=== PATIENT | male | born 1960 | race Caucasian/White ===

== ENCOUNTER 2024-10-12 10:15 | Outpatient (AMB) | payer BC, SELFPAY ==
[2024-10-12 10:21] VITALS: BP 149/91; PULSE 78; RESP 16; O2SAT 98; BMI 24.4
--- NOTE | 2024-10-12 10:21 | MHC.OFFVIS ---
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 The pain started in the late and has been slowly progressive since then, with a pain score between 5 to 6 out of 10 in intensity. The pain in his lower back is described as an aching stabbing sensation, and the left shoulder also experiences a similar aching stabbing sensation. The patient reports pins and needles sensation in his bilateral calves and toes, and movements exacerbate the pain. He experiences morning stiffness and the pain is usually worst upon waking, reaching up to 6/10 in intensity. The patient has a history of old athletic injuries, which he attributes to his back and shoulder problems. He has undergone physical therapy since 2013 and chiropractic manipulation since 1998, both providing mild relief. He is currently undergoing massage therapy and has tried acupuncture in the past, which did not help. The patient has a history of left and right inguinal hernia repair and hemorrhoids. He has been taking NSAIDs, including ibuprofen and meloxicam, and has used prednisone dose packs twice in the past 10 years. The patient has a history of heart disease identified through a calcium scan and elevated lipoprotein(a), a genetic condition. He is cautious about medication use due to his heart condition and is on a regimen to manage his cholesterol levels. Pain Description - Onset: Pain started in the late and has been slowly progressive. - Quality: Described as aching and stabbing in the lower back and left shoulder. - Location: Back, left shoulder, neck, left groin, bilateral calves, and toes. - Exacerbating factors: Movements worsen the pain. - Relieving factors: Physical therapy, chiropractic manipulation, and massage therapy provide mild relief. - Interference: Pain is worst in the morning, affecting daily activities. Physical Exam - Musculoskeletal: Examination of the back and hip, noting tenderness and pain on range of motion. - SIJ provocation was negative. - Neurological: Assessment of sensation and reflexes in the lower extremities. Results - Imaging: MRI of the back relatively normal w/ mild DDD; left hip showing degenerative labral tear and SLAP tear in the shoulder. Pain Management - Affect: Pain impacts daily activities and is worst in the morning. - Analgesia: Currently taking NSAIDs, including ibuprofen and meloxicam. - Adverse Effects: No specific adverse effects discussed. - Activities of Daily Living: Pain affects daily activities, particularly in the morning. - Aberrant Drug Related Behaviors: No aberrant behaviors reported. [facility] Medical History (Updated 10/05/24 @ 10:29 by Tameka Drake LPN) Shoulder pain Low back pain Hyperlipidemia HTN (hypertension) Hip pain Glen's disease GERD (gastroesophageal reflux disease) Fibromyalgia Dizziness CAD (coronary artery disease) Anxiety Surgical History (Updated 10/05/24 @ 10:29 by Tameka Drake LPN) History of left inguinal hernia repair Physical Exam Vital Signs: Last Vital Signs Pulse 78 10/12/24 10:21 Resp 16 10/12/24 10:21 BP 149/91 H 10/12/24 10:21 Pulse Ox 98 10/12/24 10:21 Oxygen Delivery Method Room Air 10/12/24 10:21 BMI result Body Mass Index 24.4 Assessment & Plan Assessment & Plan (1) Low back pain: Code(s): M54.50 - Low back pain, unspecified Category: Medical (2) Hip pain: Code(s): M25.559 - Pain in unspecified hip Category: Medical (3) Shoulder pain: Code(s): M25.519 - Pain in unspecified shoulder Category: Medical Plan Plan - Recommend PRP injections for the hip to address the pain due to labral tear. - Schedule diagnostic injections for the facet joints to assess LB pain origin. - Consider MRI for the shoulder to evaluate the extent of degenerative changes and surgical candidacy. - Discuss potential use of radiofrequency ablation for facet joint pain. - Explore non-cortisone options for pain management, considering patient's heart condition. Patient was informed and verbally consented to the use of an ambient scribe for clinic note documentation during this visit. Discussion Notes I discussed with the patient the potential benefits and limitations of PRP injections for the hip, emphasizing that it is not covered by insurance and is self-pay. We also talked about the possibility of diagnostic injections for the facet joints to determine the source of pain and the use of radiofrequency ablation as a non-cortisone option for managing facet joint pain. I advised the patient to consider an MRI for the shoulder to assess degenerative changes and discussed the importance of exploring non-cortisone options for pain management due to his heart condition. Patient Instructions - Consider PRP injections for hip pain management. - Schedule diagnostic injections for facet joints. - Follow up with MRI for shoulder evaluation. - Discuss non-cortisone pain management options with your plant ecologist. Coding Level of Care Code New Pt Level 4 (80815) Diagnoses Low back pain M54.50 Hip pain M25.559 Shoulder pain M25.519 Time Spent (min) 45
--- OUTSIDE RECORDS SUMMARY | 2024-10-12 11:10 | XMS_ITS | Encounter Summary ---
Author Organization [facility] Address [address] [place] [address] [place] [phone] Phone Care Team Providers Care Process Development Associate Name Role Phone Preston Moise DO Unavailable Alyssa Santacruz ELECTRICAL CONTINUITY INSPECTOR Unavailable Kimberley Mcfarlane MD Unavailable Ulisses Rivera ELECTRICAL CONTINUITY INSPECTOR Unavailable Lesli Marie MD Unavailable Martha Jordan MD Unavailable [phone] Martha Jordan MD Primary Care Provider Alyssa Santacruz ELECTRICAL CONTINUITY INSPECTOR Primary Care Provider [phone] Lesli Marie MD Unavailable Lesli Marie MD Primary Care Provider Carlene Basurto RN Unavailable [phone] Encounter Details Date Type Department Care Team (Late st Contact Info) Description 04/05/2021 Transcribe Orders [address] [place] [address] Vladimir Hickey MD [address] [place] [address], [address] [place] [address] [email or web address] Social History Tobacco Use Types Packs/Day Years Used Date Smoking Tobacco: Never Smokeless Tobacco: Never Alcohol Use Standard Drinks/Week Comments No 0 (1 standard drink = 0.6 oz pur e alcohol) Child or Family Care Answer Date Record ed Do you have problems with on e of the following making it difficult for you to work, study, or receive health care? No 08/15/2020 Education Answer Date Recorded Are you interested in help w ith more adult education (for example, completing high school, GED, job training, learning the Spanish language, technical skills, or developing parenting skills)? No 08/15/2020 Food Answer Date Recorded Within the past 6 months we worried whether our food would run out before we got money to buy more. Never True 08/15/2020 Within the past 6 months the food we bought just didn't last and we didn't have enough money to get more. Never True Paying for Meds Answer Date Recorded Do you have trouble paying for medicines? No 08/15/2020 Paying Utility Bills Answer Date Record ed Do you have trouble paying your heating or elect ricity bill? No 08/15/2020 Transportation Answer Date Recorded Has the lack of transportati on kept you from medical appointments or from getting medications? No 08/15/2020 Unemployment Answer Date Recorded Are you currently unemployed or working on a part-time or temporary basis, and looking for work? No 08/15/2020 Sex and Gender Information Value Date Recorded Sex Assigned at Not on file Legal Sex Male 9:49 PM EDT Gender Identity Not on file Sexual Orientation Not on file documented as of this encounter Plan of Treatment Upcoming Encounters Date Type Department Care Team (Late st Contact Info) Description 10/23/2024 11:30 AM EDT Office Visit [facility] [address] [place] [address] [address]rd Floor, [address] [place] [address] Scot Santoyo MD [facility], [address] [address] Kathy Cadena, POORNIMA [address] [place] [phone] [email or web address] 12/01/2024 10:00 AM EDT Office Visit [facility] [address] [place] [address] Lesli Marie MD [address] [address] [email or web address] documented as of this encounter Visit Diagnoses Not on filedocumented in this encounter Additional Health Concerns Infection Onset Date Last Indicated Resolved Time CoV-Risk Comment:Per Ambulatory Triage Form 10/10/2023 10/10/202310/09 10:31 AM EDT COVID-19 10/10/2023 10/10/2023 10/31/2023 1:21 AM EDT Assessment Noted Time PHQ-2 Depression Total Score: 0 05/17/19 12:11 PM EST documented as of this encounter Care Teams Process Development Associate Relationship Specialty Start Date End Date Martha Jordan MD [address] [place] [phone] [email or web address] PCP - General Family Medicine 03/26/21 04/12/21 Alyssa Santacruz ELECTRICAL CONTINUITY INSPECTOR [address] [place] [phone] [email or web address] PCP - General Family Medicine 04/13/21 08/23/22 Lesli Marie MD [address] [place] [phone] [email or web address] PCP - General Family Medicine 08/24/22 Preston Moise DO [address] [place] [phone] [email or web address] Historical LMR Provider 01/10/17 08/23/22 Alyssa Santacruz ELECTRICAL CONTINUITY INSPECTOR [address] [place] [address] [place] [address] Historical LMR Provider 01/10/17 08/23/22 Kimberley Mcfarlane MD [address] [address] Historical LMR Provider 01/10/17 Ulisses Rivera CNP [address] [address] Historical LMR Provider 01/10/17 Lesli Marie MD [address] [place] [address] [address] [place] [address] Historical LMR Provider 01/10/17 Martha Jordan MD [address] [place] [address] 7 [place] [address] [email or web address] Insurance Assigned Provider 08/28/2002/13 Lesli Marie MD [address] [place] [address] 7 [place] [address] Insurance Assigned Provider 06/29/2305/30/24 Carlene Basurto, RN [address] [place], [place] [phone] [email or web address] Director Of Occupational Health 06/25/23 06/25/24 documented as of this encounter Additional Source Comments The information contained in this document represents components of the legal health record. It is not the complete legal health record.[facility]
== END 2024-10-12 11:24 | disposition home or self-care (01) ==
LOC: HO.PMC 10:16
PROVIDERS: PCP Family Medicine; Referring Provider Family Medicine; Visit Provider Internal Medicine
DX: M54.50 Low back pain, unspecified (principal); M25.559 Pain in unspecified hip; M25.519 Pain in unspecified shoulder
CPT/HCPCS: 99204